=== PATIENT | female | born 1975 | race Caucasian/White ===

== ENCOUNTER → 2017-03-16 | Outpatient (CLI) | payer OTHER | LOC: KOH-I 13:42 | DX: R59.0 Localized enlarged lymph nodes (principal) | CPT/HCPCS: 76536 ==

== ENCOUNTER → 2017-04-02 | Outpatient (CLI) | payer OTHER | LOC: KOH-I 03-28 12:30 | DX: R22.1 Localized swelling, mass and lump, neck (principal); E03.9 Hypothyroidism, unspecified | CPT/HCPCS: 70491; Q9962 ==

== ENCOUNTER → 2021-08-01 | Outpatient (CLI) | payer OTHER ==
[~2021-08-01] MED LIST: LODINE CAP 300300 MG PO; PENVEE K 500 M500 MG PO; TYLENOL 500 MG500 MG PO; Viscous Lidocaine2% TOP
== END ==
LOC: KOH-I 11:45
DX: M79.641 Pain in right hand (principal); M79.642 Pain in left hand
CPT/HCPCS: 73130

== ENCOUNTER → 2021-09-15 | Outpatient (CLI) | payer OTHER ==
[~2021-09-15] MED LIST changes: +CYANOCOBAL1000 MCG/1 INJ; +CYCLOBENZAPRINE10 MG PO; +HYDROCHLOROTH12.5 MG PO; +HYDROCODON-ACE1 EAC4 PO; +LEVOTHYROXINE25 MC1 PO; +LISINOPRIL20 MG PO; +OMEPRAZOLE20 M1 PO; +PROPRANOLOL HCL40 MG PO; +SEROQUEL25 MG PO
[2021-09-15 13:21] LABS: HEMOGLOBIN 12.4 gm/dl (12.3-15.3); RED BLOOD COUNT 4.44 M/UL (4.00-5.10); WHITE BLOOD COUNT 10.5 K/UL (4.5-11.0)
[2021-09-15 13:50] LABS: BUN/CREATININE RATIO 22 (0-10)
== END ==
LOC: OPSV2 12:00
PROVIDERS: Anesthesiology; Orthopaedic Surgery
DX: Z01.812 Encounter for preprocedural laboratory examination (principal); M65.331 Trigger finger, right middle finger
CPT/HCPCS: 80048; 85027

== ENCOUNTER → 2021-09-19 | Day surgery (SDC) | payer OTHER | END | disposition home or self-care (01) | LOC: OR 05:26 | DX: M65.331 Trigger finger, right middle finger (principal); E07.9 Disorder of thyroid, unspecified; I10 Essential (primary) hypertension; M19.90 Unspecified osteoarthritis, unspecified site; F41.9 Anxiety disorder, unspecified; F32.A Depression, unspecified; Z90.710 Acquired absence of both cervix and uterus; Z90.49 Acquired absence of other specified parts of digestive tract; Z88.8 Allergy status to other drugs, medicaments and biological substances; Z79.899 Other long term (current) drug therapy | CPT/HCPCS: J0690; J1100; J2001; J2250; J2405; J2704; J3010; J7120 ==

== ENCOUNTER 2021-12-22 07:37 | Emergency (ER) | payer OTHER ==
[2021-12-22] MEDS ORDERED: CYCLOBENZAPRINE10 MG PO (09:56)
[2021-12-22] MEDS ORDERED: IBUPROFEN600 MG PO (09:56)
== END 2021-12-22 10:04 | disposition home or self-care (01) ==
LOC: ER1 07:37
DX: S00.81XA Abrasion of other part of head, initial encounter (principal); I10 Essential (primary) hypertension; E07.9 Disorder of thyroid, unspecified; W06.XXXA Fall from bed, initial encounter; Y92.009 Unspecified place in unspecified non-institutional (private) residence as the place of occurrence of the external cause
CPT/HCPCS: 71046; 72125; 73030; 73060; 73130; 99284

== ENCOUNTER 2022-05-22 16:50 | Emergency (ER) | payer OTHER ==
[~2022-05-22 16:50] MED LIST changes: +IBUPROFEN600 MG PO
[2022-05-22 19:39] LABS: HEMOGLOBIN 15.1 gm/dl (12.3-15.3); RED BLOOD COUNT 5.31 M/UL (4.00-5.10); WHITE BLOOD COUNT 13.4 K/UL (4.5-11.0)
[2022-05-22 20:14] LABS: BUN/CREATININE RATIO 19 (0-10)
[2022-05-22] MEDS ORDERED: SENNA8.6 MG PO (21:42)
[2022-05-22] MEDS ORDERED: ADULT GLYCERIN1 EACH PR (21:42)
== END 2022-05-22 22:59 | disposition home or self-care (01) ==
LOC: ER1 16:50
PROVIDERS: Student in an Organized Health Care Education/Training Program
DX: K59.00 Constipation, unspecified (principal); I10 Essential (primary) hypertension; R00.0 Tachycardia, unspecified
CPT/HCPCS: 74018; 80053; 85025; 93005; 96374; 99284; J2060